=== PATIENT | male | born 1995 | race Caucasian/White ===

== ENCOUNTER 2025-06-23 12:25 | Emergency (ER) | payer OTHER ==
[~2025-06-23] VITALS: Ht 170.2 cm; Wt 91.7 kg
[2025-06-23 13:49] VITALS: BP 109/65; TEMP 98.3; O2SAT 98
== END 2025-06-23 13:51 | disposition home or self-care (01) ==
LOC: M ED 12:25
DX: T63.441A Toxic effect of venom of bees, accidental (unintentional), initial encounter (principal); F17.290 Nicotine dependence, other tobacco product, uncomplicated